=== PATIENT | male | born 2000 | race Caucasian/White ===

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

== ENCOUNTER 2018-01-15 11:19 | Emergency (ER) | payer BC ==
[2018-01-15 12:03] VITALS: BP 122/72
--- NOTE | 2018-01-15 12:04 | UC ---
Throat Pain/Nasal Aydin HPI - HPI Summary HPI Summary: 17 yo male presents with sinus pain/pressure/congestion for the last week. He has been using a flonase nasal spray with no relief. He tells me that he tends to get sinus infections around this time every year. He denies fever, chills, sore throat, cough. - History of Current Complaint Chief Complaint: UCGeneralIllness Stated Complaint: SINUS PRESSURE Time Seen by Provider: 01/15/18 12:04 Hx Obtained From: Patient Onset/Duration: Gradual Onset Severity: Mild Pain Intensity: 3 Pain Scale Used: 0-10 Numeric - Allergies/Home Medications Allergies/Adverse Reactions: Allergies Allergy/AdvReac Type Severity Reaction Status Date / Time No Known Allergies Allergy Verified 01/15/18 12:01 PMH/Surg Hx/FS Hx/Imm Hx - Additional Past Medical History Additional PMH: None - Surgical History Surgical History: Yes Surgery Procedure, Year, and Place: wisdom teeth. right meniscus repair 07/2017 - Family History Known Family History: Positive: Hypertension Negative: Diabetes - Social History Occupation: Student Lives: Dormitory/Roommates Alcohol Use: Occasionally Substance Use Type: None Smoking Status (MU): Never Smoked Tobacco Have You Smoked in the Last Year: No - Immunization History Most Recent Influenza Vaccination: 2014 Vaccination Up to Date: Yes Review of Systems All Other Systems Reviewed And Are Negative: Yes Constitutional: Positive: Negative Skin: Positive: Negative Eyes: Positive: Negative ENT: Positive: Nasal Discharge, Sinus Congestion, Sinus Pain/Tenderness Respiratory: Positive: Negative Cardiovascular: Positive: Negative Gastrointestinal: Positive: Negative Neurological: Positive: Negative Psychological: Positive: Negative Physical Exam - Summary Physical Exam Summary: GENERAL: NAD. WDWN. No pain distress. SKIN: No rashes, sores, lesions, or open wounds. HEENT: Head: AT/NC Eyes: EOM intact. Conjunctiva clear without inflammation or discharge. Ears: Hearing grossly normal. TMs intact, no bulging, erythema, or edema. Nose: Nasal mucosa mildly swollen and erythematous with yellow discharge. TTP maxillary and frontal sinus. Positive post nasal drip Throat: Posterior oropharynx without exudates, erythema, or tonsillar enlargement. Uvula midline. NECK: Supple. Nontender. No lymphadenopathy. CHEST: CTAB. No r/r/w. No accessory muscle use. Breathing comfortably and in no distress. CV: RRR. Without m/r/g. Pulses intact. NEURO: Alert. PSYCH: Age appropriate behavior. Triage Information Reviewed: Yes Vital Signs: Initial Vital Signs Temp 98.3 F 01/15/18 11:59 Pulse 52 01/15/18 11:59 Resp 14 01/15/18 11:59 BP 122/72 01/15/18 11:59 Pulse Ox 99 01/15/18 11:59 Vital Signs Reviewed: Yes Throat Pain/Nasal Course/Dx - Course Course Of Treatment: Sinusitis. Pt says that he has had zpak in the past and this usually resolves his sinus infections. - Differential Dx/Diagnosis Provider Diagnoses: Sinusitis Discharge - Sign-Out/Discharge Documenting (check all that apply): Patient Departure All imaging exams completed and their final reports reviewed: No Studies - Discharge Plan Condition: Stable Disposition: HOME Prescriptions: Azithromycin TAB* [Zithromax TAB (Z-HARRIS) 250 mg #6 tabs] 2 tab PO .TODAY, THEN 1 DAILY #1 harris Patient Education Materials: Sinusitis (ED) Referrals: Lita MARTINS,Arian Liang [Primary Care Provider] - Additional Instructions: If you develop a fever, shortness of breath, chest pain, new or worsening symptoms - please call your PCP or go to the ED. - Billing Disposition and Condition Condition: STABLE Disposition: Home - Attestation Statements Provider Attestation: I was available for consult. This patient was seen by the JENNIFER. The patient was not presented to, seen by, or examined by me. -Jailyn
== END 2018-01-15 12:13 | disposition home or self-care (01) ==
LOC: UCCORT 11:19
DX: J32.9 Chronic sinusitis, unspecified (principal)
CPT/HCPCS: 99212; G0463

== ENCOUNTER 2018-07-09 12:15 | Emergency (ER) | payer BC ==
--- NOTE | 2018-07-09 13:02 | UC ---
UC General HPI - HPI Summary HPI Summary: pt c/o a sore throat with chills and cough plus congestion. onset last pm. + headache. - History of Current Complaint Chief Complaint: UCHeadamolly Stated Complaint: ST,CHILLS,ACHES,COUGH Time Seen by Provider: 07/09/18 12:38 Hx Obtained From: Patient Onset/Duration: Gradual Onset Timing: Constant Pain Intensity: 5 Associated Signs & Symptoms: Negative: Abdominal Pain, Diarrhea, Vomiting - Allergy/Home Medications Allergies/Adverse Reactions: Allergies Allergy/AdvReac Type Severity Reaction Status Date / Time No Known Allergies Allergy Verified 07/09/18 12:47 Home Medications: Home Medications NK [No Home Medications Reported] 07/09/18 [History Confirmed 07/09/18] PMH/Surg Hx/FS Hx/Imm Hx Previously Healthy: Yes - Surgical History Surgical History: Yes Surgery Procedure, Year, and Place: wisdom teeth. right meniscus repair 07/2017 - Family History Known Family History: Positive: None, Hypertension Negative: Diabetes - Social History Occupation: Student Alcohol Use: Rare Substance Use Type: None Smoking Status (MU): Never Smoked Tobacco Have You Smoked in the Last Year: No - Immunization History Most Recent Influenza Vaccination: 2014 Vaccination Up to Date: Yes Review of Systems All Other Systems Reviewed And Are Negative: Yes Constitutional: Positive: Fever ENT: Positive: Sore Throat, Nasal Discharge Respiratory: Positive: Cough Gastrointestinal: Positive: Nausea Musculoskeletal: Positive: Myalgia Neurological: Positive: Headache Physical Exam Triage Information Reviewed: Yes Appearance: Well-Appearing Vital Signs: Initial Vital Signs Temp 98.4 F 07/09/18 12:40 Pulse 76 07/09/18 12:40 Resp 16 07/09/18 12:40 BP 143/60 07/09/18 12:40 Pulse Ox 97 07/09/18 12:40 Vital Signs Reviewed: Yes Eyes: Positive: Conjunctiva Clear ENT: Positive: Pharyngeal erythema - mild, Nasal congestion, Nasal drainage - clear, TMs normal, Uvula midline. Negative: Trismus, Muffled voice, Hoarse voice Neck: Positive: Supple, Nontender, No Lymphadenopathy Respiratory: Positive: Lungs clear, Normal breath sounds, No respiratory distress Cardiovascular: Positive: RRR, No Murmur Abdomen Description: Positive: Nontender, No Organomegaly, Soft. Negative: CVA Tenderness (R), CVA Tenderness (L), Distended, Guarding Bowel Sounds: Positive: Present Musculoskeletal: Positive: ROM Intact Neurological: Positive: Alert Psychological: Positive: Age Appropriate Behavior Skin Exam: Normal Skin: Negative: Rashes Diagnostics - Laboratory Lab Results: Rapid strep=negative Course/Dx - Course Course Of Treatment: NO HX HTN. REPEAT BP 110/80 - Differential Dx - Multi-Symptom Differential Diagnoses: Other - non toxic. rapid strep=negative. no concern for peritonsilar abscess. antibiotic not indicated. - Diagnoses Provider Diagnosis: URI (upper respiratory infection), Pharyngitis Discharge - Sign-Out/Discharge Documenting (check all that apply): Patient Departure All imaging exams completed and their final reports reviewed: No Studies - Discharge Plan Condition: Stable Disposition: HOME Patient Education Materials: Upper Respiratory Infection (DC), Pharyngitis (ED) Forms: *School Release Referrals: Lita MARTINS,Arian Liang [Primary Care Provider] - Additional Instructions: FOLLOW UP PRIMARY CARE IF NOT BETTER IN 5 DAYS OR SOONER IF WORSE. - Billing Disposition and Condition Condition: STABLE Disposition: Home
[2018-07-09] MEDS ORDERED: Ibuprofen ADULT LIQ* 600 MG/30 ML UDC PO ONE (13:17)
[2018-07-09 13:21] VITALS: BP 110/80
== END 2018-07-09 13:26 | disposition home or self-care (01) ==
LOC: UCCORT 12:15
DX: J06.9 Acute upper respiratory infection, unspecified (principal); J02.9 Acute pharyngitis, unspecified; R51 Headache
CPT/HCPCS: 87651; 99212; A9270-GY; G0463

== ENCOUNTER 2019-01-29 09:34 | Emergency (ER) | payer BC ==
[2019-01-29 10:09] VITALS: BP 108/69
--- NOTE | 2019-01-29 10:27 | UC ---
Ear Complaint HPI - HPI Summary HPI Summary: 18-year-old male who had a small "lump" in his left ear canal which has progressively worsened. - History of Current Complaint Chief Complaint: UCEar Stated Complaint: LEFT EAR Time Seen by Provider: 01/29/19 10:20 Hx Obtained From: Patient Onset/Duration: Gradual Onset Severity Initially: Mild Severity Currently: Mild Pain Intensity: 4 Aggravating Factors: Nothing Alleviating Factors: Nothing Associated Signs/Symptoms: Positive: Swelling @ - Patient states he has increased swelling of that area of the ear canal and has some left-sided throat pain which radiates from the left ear. - Allergies/Home Medications Allergies/Adverse Reactions: Allergies Allergy/AdvReac Type Severity Reaction Status Date / Time No Known Allergies Allergy Verified 01/29/19 10:08 PMH/Surg Hx/FS Hx/Imm Hx Previously Healthy: Yes - Surgical History Surgical History: Yes Surgery Procedure, Year, and Place: wisdom teeth. right meniscus repair 07/2017 - Family History Known Family History: Positive: None, Hypertension Negative: Diabetes - Social History Occupation: Student Lives: Dormitory/Roommates Alcohol Use: Rare Substance Use Type: None Smoking Status (MU): Never Smoked Tobacco Have You Smoked in the Last Year: No - Immunization History Most Recent Influenza Vaccination: 2014 Vaccination Up to Date: Yes Review of Systems All Other Systems Reviewed And Are Negative: Yes Skin: Positive: Other - The area started off as a small lump and has now progressed to a larger lump in his left ear canal. Physical Exam Triage Information Reviewed: Yes Appearance: Well-Appearing, No Pain Distress, Well-Nourished Vital Signs: Initial Vital Signs Temp 98.1 F 01/29/19 10:05 Pulse 81 01/29/19 10:05 Resp 18 01/29/19 10:05 BP 108/69 01/29/19 10:05 Pulse Ox 97 01/29/19 10:05 Vital Signs Reviewed: Yes Eyes: Positive: Conjunctiva Clear ENT: Positive: Hearing grossly normal, Pharynx normal, TMs normal, Uvula midline Neck: Positive: Supple, Nontender, No Lymphadenopathy Respiratory: Positive: Lungs clear, Normal breath sounds, No respiratory distress, No accessory muscle use Cardiovascular: Positive: RRR, No Murmur, Pulses Normal, Brisk Capillary Refill Musculoskeletal Exam: Normal Neurological Exam: Normal Psychological Exam: Normal Skin: Positive: Other - Patient has a small abscess in the entry to the left ear canal, with a small area of exudate present. Ear Complaint Course/Dx - Course Course Of Treatment: I was prepared to do an incision and drainage of the small abscess however when I reexamined the area it had spontaneously opened and was draining yellow pus. - Differential Dx/Diagnosis Provider Diagnosis: Abscess of left ear canal Discharge ED - Sign-Out/Discharge Documenting (check all that apply): Patient Departure All imaging exams completed and their final reports reviewed: No Studies - Discharge Plan Condition: Good Disposition: HOME Prescriptions: Amoxicillin/Clavulanate TAB* [Augmentin TAB 875*] 875 mg PO BID 10 Days #20 tab Patient Education Materials: Abscess (ED) Referrals: Lita MARTINS,Arian Liang [Primary Care Provider] - Willie Aceves MD [Medical Doctor] - Nathaniel Anderson MD [Medical Doctor] - Additional Instructions: Take the antibiotic with food. Tylenol every 4 hours and ibuprofen every 8 hours for pain. Follow-up with the ear nose and throat physician if no improvement in 3 or 4 days or if worsening symptoms. The patient was given the referral for [facility]. - Billing Disposition and Condition Condition: GOOD Disposition: Home
== END 2019-01-29 10:50 | disposition home or self-care (01) ==
LOC: UCCORT 09:34
DX: H60.02 Abscess of left external ear (principal); R07.0 Pain in throat
CPT/HCPCS: 99212; G0463

== ENCOUNTER 2019-04-24 08:38 | Emergency (ER) | payer BC ==
[2019-04-24 08:53] VITALS: BP 135/71
--- NOTE | 2019-04-24 09:11 | UC ---
Throat Pain/Nasal Aydin HPI - HPI Summary HPI Summary: 18 yo with sore throat and subjective fever x 3 days. Increased dysphagia has been his main concern. + malaise, chills. - History of Current Complaint Chief Complaint: UCGeneralIllness Stated Complaint: SORE THROAT COUGH CONGESTION Time Seen by Provider: 04/24/19 09:04 Hx Obtained From: Patient Onset/Duration: Gradual Onset, Lasting Days - 3 Severity: Moderate Pain Intensity: 7 Cough: Nonproductive Associated Signs & Symptoms: Positive: Dysphagia, Nasal Discharge - Epiglottits Risk Factors Epiglottis Risk Factors: Negative - Allergies/Home Medications Allergies/Adverse Reactions: Allergies Allergy/AdvReac Type Severity Reaction Status Date / Time No Known Allergies Allergy Verified 04/24/19 08:53 Home Medications: Home Medications Ibuprofen TAB* [Motrin TAB* 400 MG] 400 mg PO Q6H PRN 04/24/19 [History Confirmed 04/24/19] PMH/Surg Hx/FS Hx/Imm Hx Previously Healthy: Yes - Surgical History Surgical History: Yes Surgery Procedure, Year, and Place: wisdom teeth. right meniscus repair 07/2017 - Family History Known Family History: Positive: None, Hypertension Negative: Diabetes - Social History Occupation: Student Alcohol Use: Occasionally Substance Use Type: None Smoking Status (MU): Never Smoked Tobacco Have You Smoked in the Last Year: No - Immunization History Most Recent Influenza Vaccination: 2014 Vaccination Up to Date: Yes Review of Systems All Other Systems Reviewed And Are Negative: Yes Constitutional: Positive: Fatigue Skin: Positive: Negative Eyes: Positive: Negative ENT: Positive: Sore Throat, Nasal Discharge Respiratory: Positive: Negative Cardiovascular: Positive: Negative Gastrointestinal: Negative: Vomiting, Diarrhea, Nausea Genitourinary: Positive: Negative Motor: Positive: Negative Neurovascular: Positive: Negative Musculoskeletal: Positive: Negative Neurological/Mental Status: Positive: Negative Psychological: Positive: Negative Is Patient Immunocompromised?: No Physical Exam Triage Information Reviewed: Yes Appearance: No Pain Distress, Ill-Appearing Vital Signs: Initial Vital Signs Temp 98.8 F 04/24/19 08:49 Pulse 61 04/24/19 08:49 Resp 17 04/24/19 08:49 BP 135/71 04/24/19 08:49 Pulse Ox 97 04/24/19 08:49 ENT: Positive: Pharyngeal erythema, TM dull - bilateral serous fluid, Tonsillar swelling. Negative: Tonsillar exudate Neck: Positive: Supple, Nontender, No Lymphadenopathy Respiratory: Positive: Lungs clear, Normal breath sounds Cardiovascular: Positive: RRR, No Murmur Musculoskeletal Exam: Normal Neurological Exam: Normal Psychological Exam: Normal Skin Exam: Normal Diagnostics - Laboratory Lab Results: influenza B positive Throat Pain/Nasal Course/Dx - Course Course Of Treatment: Discussed clinical course and he would like to try Tamiflu. - Differential Dx/Diagnosis Differential Diagnosis/HQI/PQRI: Influenza, Pharyngitis, Tonsillitis Provider Diagnosis: Influenza B Discharge ED - Sign-Out/Discharge Documenting (check all that apply): Patient Departure All imaging exams completed and their final reports reviewed: No Studies - Discharge Plan Condition: Stable Disposition: HOME Prescriptions: Oseltamivir CAP* [Tamiflu CAP*] 75 mg PO BID #10 cap Patient Education Materials: Influenza (ED) Forms: *School Release Referrals: Lita MARTINS,Arian Liang [Primary Care Provider] - Additional Instructions: You have influenza B. Tamiflu can help to decrease the symptoms, but can have side effects of nausea and loose stools. Use ibuprofen 600mg up to 4 times per day for fever and sore throat and muscle aches. Anticipate that fever can last off and on for up to a week. Ensure increased rest and fluids. - Billing Disposition and Condition Condition: STABLE Disposition: Home
[2019-04-24 09:26] LABS: Influenza B Molecular POSITIVE (Negative)
== END 2019-04-24 09:42 | disposition home or self-care (01) ==
LOC: UCCORT 08:38
DX: J10.1 Influenza due to other identified influenza virus with other respiratory manifestations (principal)
CPT/HCPCS: 87651; 99212; G0463

== ENCOUNTER 2019-04-26 10:42 | Emergency (ER) | payer BC ==
[2019-04-26 11:02] VITALS: BP 154/66
--- NOTE | 2019-04-26 11:10 | UC ---
Throat Pain/Nasal Aydin HPI - HPI Summary HPI Summary: sore throat x 3 day pt. was diagnosed with Flu B 2 days ago , symptoms are improving, no more body aches, no more joint pain cough is better, no fever, but sore throat, is worse as he is concern about strep - History of Current Complaint Chief Complaint: UCRespiratory Stated Complaint: SORE THROAT, COUGH Time Seen by Provider: 04/26/19 10:54 Hx Obtained From: Patient Onset/Duration: Gradual Onset, Lasting Days - 3, Still Present Severity: Moderate Pain Intensity: 7 Cough: Nonproductive Associated Signs & Symptoms: Negative: Sinus Discomfort, Nasal Discharge, Fever - Allergies/Home Medications Allergies/Adverse Reactions: Allergies Allergy/AdvReac Type Severity Reaction Status Date / Time No Known Allergies Allergy Verified 04/26/19 10:56 PMH/Surg Hx/FS Hx/Imm Hx Previously Healthy: Yes - Surgical History Surgical History: Yes Surgery Procedure, Year, and Place: wisdom teeth. right meniscus repair 07/2017 - Family History Known Family History: Positive: None, Hypertension Negative: Diabetes - Social History Alcohol Use: Occasionally Substance Use Type: None Smoking Status (MU): Never Smoked Tobacco Have You Smoked in the Last Year: No - Immunization History Most Recent Influenza Vaccination: 2014 Vaccination Up to Date: Yes Review of Systems All Other Systems Reviewed And Are Negative: Yes Constitutional: Negative: Fever, Chills, Fatigue Skin: Positive: Negative Eyes: Positive: Negative ENT: Positive: Sore Throat. Negative: Nasal Discharge Respiratory: Positive: Cough Is Patient Immunocompromised?: No Physical Exam Triage Information Reviewed: Yes Appearance: Well-Appearing, No Pain Distress, Well-Nourished Vital Signs: Initial Vital Signs Temp 99.3 F 04/26/19 10:57 Pulse 58 04/26/19 10:57 Resp 18 04/26/19 10:57 BP 154/66 04/26/19 10:57 Pulse Ox 98 04/26/19 10:57 Vital Signs Reviewed: Yes Eye Exam: Normal Eyes: Positive: Conjunctiva Clear ENT: Positive: Normal ENT inspection, Hearing grossly normal, Pharynx normal, TMs normal. Negative: TM bulging, Tonsillar swelling, Tonsillar exudate Neck: Positive: Supple, Nontender, No Lymphadenopathy Respiratory: Positive: Chest non-tender, Lungs clear, Normal breath sounds Cardiovascular: Positive: RRR, No Murmur, Pulses Normal Throat Pain/Nasal Course/Dx - Differential Dx/Diagnosis Provider Diagnosis: Viral pharyngitis Discharge ED - Sign-Out/Discharge Documenting (check all that apply): Patient Departure All imaging exams completed and their final reports reviewed: No Studies - Discharge Plan Condition: Stable Disposition: HOME Patient Education Materials: Pharyngitis (ED) Referrals: Lita MARTINS,Arian Liang [Primary Care Provider] - If Needed Additional Instructions: negative rapid strep viral illness - Billing Disposition and Condition Condition: STABLE Disposition: Home
== END 2019-04-26 11:25 | disposition home or self-care (01) ==
LOC: UCCORT 10:42
DX: J02.8 Acute pharyngitis due to other specified organisms (principal)
CPT/HCPCS: 87651; 99211; G0463

== ENCOUNTER 2019-05-01 10:37 | Emergency (ER) | payer BC ==
[2019-05-01 11:03] VITALS: BP 117/75
--- NOTE | 2019-05-01 11:18 | UC ---
Lower Extremity/Ankle HPI - HPI Summary HPI Summary: 18 yo male presents, accompanied by mother, with RIGHT ankle injury. He tells me that yesterday he was playing basketball and inverted his right ankle and foot. Since that time has had pain in both. He has rested, iced, and taken ibuprofen with mild relief. He is ambulatory with the use of crutches currently. Denies numbness or tingling. - History of Current Complaint Chief Complaint: UCLowerExtremity Stated Complaint: ANKLE INJURY Time Seen by Provider: 05/01/19 11:04 Hx Obtained From: Patient Onset/Duration: Sudden Onset Severity Initially: Moderate Severity Currently: Moderate Pain Intensity: 5 Pain Scale Used: 0-10 Numeric Aggravating Factor(s): Standing, Ambulation Alleviating Factor(s): Rest, Elevation Able to Bear Weight: Yes - Allergies/Home Medications Allergies/Adverse Reactions: Allergies Allergy/AdvReac Type Severity Reaction Status Date / Time No Known Allergies Allergy Verified 05/01/19 10:59 Home Medications: Home Medications Ibuprofen TAB* [Motrin TAB* 400 MG] 600 mg PO Q6H PRN 04/24/19 [History Confirmed 05/01/19] PMH/Surg Hx/FS Hx/Imm Hx - Additional Past Medical History Additional PMH: None - Surgical History Surgical History: Yes Surgery Procedure, Year, and Place: wisdom teeth. right meniscus repair 07/2017 - Family History Known Family History: Positive: Hypertension Negative: Diabetes - Social History Lives: With Family Alcohol Use: None Substance Use Type: None Smoking Status (MU): Never Smoked Tobacco Have You Smoked in the Last Year: No - Immunization History Most Recent Influenza Vaccination: 2014 Vaccination Up to Date: Yes Review of Systems All Other Systems Reviewed And Are Negative: No Constitutional: Positive: Negative Skin: Positive: Negative Respiratory: Positive: Negative Cardiovascular: Positive: Negative Neurovascular: Positive: Negative Musculoskeletal: Positive: Other: - Right foot and ankle pain Neurological/Mental Status: Positive: Negative Psychological: Positive: Negative Physical Exam - Summary Physical Exam Summary: GENERAL: NAD. WDWN. No pain distress. SKIN: No rashes, sores, lesions, or open wounds. CHEST: No accessory muscle use. Breathing comfortably and in no distress. CV: Pulses intact PT and DP. Cap refill <2seconds MSK: RIGHT ANKLE: FROM. Strength 5/5. Moderate joint edema. Negative talar tilt. No increased laxity. Negative Mackay test. RIGHT FOOT: NTTP. No 5th MT ttp. NEURO: Alert. Sensations intact and symmetric B/L LEs PSYCH: Age appropriate behavior. Triage Information Reviewed: Yes Vital Signs: Initial Vital Signs Temp 98.1 F 05/01/19 10:59 Pulse 81 05/01/19 10:59 Resp 16 05/01/19 10:59 BP 117/75 05/01/19 10:59 Pulse Ox 98 05/01/19 10:59 Vital Signs Reviewed: Yes Diagnostics - Radiology Foot and Ankle XR Radiology Interpretation Completed By: Radiologist Summary of Radiographic Findings: IMPRESSION: SOFT TISSUE SWELLING. NO ACUTE OSSEOUS INJURY. IF SYMPTOMS PERSIST, RECOMMEND REPEAT IMAGING. Lower Extremity Course/Dx - Course Course Of Treatment: XR as above. Given LORNA, exam, and degree of edema today - concern for ligament injury. He was placed in a CAM boot and advised to use his crutches and RICE and f/u with [facility] this week for a recheck - Differential Dx/Diagnosis Provider Diagnosis: Ankle sprain Discharge ED - Sign-Out/Discharge Documenting (check all that apply): Patient Departure All imaging exams completed and their final reports reviewed: Yes - Discharge Plan Condition: Stable Disposition: HOME Patient Education Materials: Ankle Sprain (ED) Referrals: Lita MARTINS,Arian Liang [Primary Care Provider] - [facility] [Provider Group] - As Soon As Possible Additional Instructions: The X-ray of your foot and ankle were negative for fracture today, but given your mechanism of injury and exam today there is high suspicion for an underlying ligament injury 1) Rest, Ice, and elevate your ankle as much as possible 2) Use the walking boot and crutches to be toe-touching or non-weight bearing until you are seen by Orthopedics. 3) I recommend that you call Dr. Duron at [facility] at the number below to schedule an appointment within 1 week for a recheck. - Billing Disposition and Condition Condition: STABLE Disposition: Home
== END 2019-05-01 11:49 | disposition home or self-care (01) ==
LOC: UCEAST 10:37
DX: S93.401A Sprain of unspecified ligament of right ankle, initial encounter (principal); X50.0XXA Overexertion from strenuous movement or load, initial encounter; Y93.67 Activity, basketball; Y92.9 Unspecified place or not applicable
CPT/HCPCS: 99212; G0463